=== PATIENT | female | born 1970 | race American Indian/Alaskan Native ===

== ENCOUNTER 2020-06-03 08:24 | Outpatient (CLI) | payer OTHER ==
--- NOTE | 2020-06-03 11:05 | Ultrasound Report ---
RIGHT DIGITAL DIAGNOSTIC MAMMOGRAM WITH CAD WITH TOMOSYNTHESIS, 06/03/2020 LEFT LIMITED BREAST ULTRASOUND CLINICAL INFORMATION / INDICATION: History of mild architectural distortion with benign layering micr ocalcifications in the upper outer right breast since it least 2016 with biopsy this area yielding be nign findings in 2017. Subsequent evaluation at [facility] resulted in conclusion of no additio nal biopsy needed. Recent follow-up examination at a different outside institution suggested slight i ncrease in microcalcifications with recommendation of excision. 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 Patient has a family history of b reast cancer. Patient presents today for follow-up evaluation and assessment of need for biopsy of the ductal ectas ia on the left and for repeat stereotactic guided biopsy on the right. TECHNIQUE: Digital right mammographic imaging was performed including tomosynthesis. Spot compression views were obtained. Limited ultrasound was performed. This examination was interpreted with the perla efit of Computer-Aided Detection (CAD) analysis. COMPARISON: Multiple prior outside examinations from 2016 through 12/09/2019 FINDINGS: Breast Density: The breasts are heterogeneously dense, which may obscure small masses. MAMMOGRAPHIC FINDINGS: Examination today includes 3-plane full field conventional and tomosynthesis i maging of the right breast and additional conventional spot views. Most recent outside study in December consisted only of full field conventional imaging and ultrasound of the right breast. The area of mild architectural distortion with associated microcalcifications is again seen in the up per outer right breast. Biopsy clip is located within this area. Comparison with prebiopsy images isabelle the biopsy removed many of the central calcifications which had previously shown to be benign and layering on 90 degree magnification views. Close evaluation of the remaining microcalcifications to b ot the most recent images and older images does not reveal an obvious increase in calcifications. I do not see a change in the appearance of the mild architectural distortion from 2016. This area appea rs stable from that time with the exception of the interval biopsy changes. On study in December when the re was a question of a density more medially which is not seen today. No other changes are noted. ULTRASOUND FINDINGS: Targeted ultrasound evaluation was performed of the area of interest. Evaluatio n of the retroareolar area of the left breast shows again diffuse ductal ectasia in this area with mu ltiple mild moderately dilated ducts. Most of these ducts show very mild diffuse increase in echogeni city internally which is much less prominent than on the study in December. No moving debris was reported by the technologist. No vascularity, shadowing, wall thickening, or nodularity is seen. No single du ct is particularly prominent. No other abnormalities are seen. IMPRESSION: 1. On the right the situation is rather complicated, in part by multiplicity of evaluations at differ ent centers over the last 3 years with varying recommendations ranging from no interventional action to recommendation of excision of the continuing area of calcifications and mild architectural distort ion. The calcifications are clearly benign on prior magnification analysis. The 2017 stereotactic bio psy appears to have involved the area in question with good positioning of the clip in this area and removal of the central microcalcifications. This area, other than the biopsy changes, to my analysis is stable since 2016. 2. Improved appearance of the ductal ectasia in the left retroareolar area. Though the ectasia persis ts involving multiple ducts, the degree of internal echogenicity is decreased without other suspiciou s characters. Patient denies history of nipple discharge. 3. Given the stable appearance on the right and prior benign biopsy of this area, I concur with the p revious [facility] assessment that repeating the stereotactic biopsy is clearly indicated. Rick tionally, there is improvement in appearance of the only mildly abnormal multiple dilated ducts in th e left retroareolar area. My strong recommendation is for breast MR which according to the patient ramirez s not been performed in the past. This would allow noninterventional significant evaluation of the ar eas in question in both breasts. If abnormal enhancement is seen in the areas in question then certai nly biopsy by percutaneous or excisional methods might be reconsidered. This was discussed at length with the patient and she understands and agrees with the course of actio n. Follow up recommendation: See above BI-RADS Category 0: Incomplete. Needs additional imaging evaluation and/or prior mammograms for gume vora. A "normal" or negative report should not discourage follow up or biopsy of a clinically significant f inding. A written summary of these findings will be mailed to the patient. The patient will be entered into a mammography reporting system which will generate a reminder letter for the patient's next appointmen t at the appropriate interval. According to the [employer], yearly mammograms are recommended starting at age 40 and continuing as long as a woman is in good health. Breast MRI is recommended for women with an deandre roximately 20-25% or greater lifetime risk of breast cancer, including women with a strong family his tory of breast or ovarian cancer and women who have been treated for Hodgkin's disease. Signer Name: Nicolas Em MD Signed: 06/03/2020 11:00 AM Workstation Name: [id number]
== END 2020-06-03 08:25 | disposition home or self-care (01) ==
LOC: SPVWC 08:24
PROVIDERS: ATTEND Surgery
DX: R92.1 Mammographic calcification found on diagnostic imaging of breast (principal); R92.8 Other abnormal and inconclusive findings on diagnostic imaging of breast; N64.89 Other specified disorders of breast
CPT/HCPCS: 76642; 77065; G0279

== ENCOUNTER 2020-06-24 08:31 | Outpatient (CLI) | payer OTHER ==
--- NOTE | 2020-06-24 10:02 | Magnetic Resonance Report ---
Bilateral breast MR without and with contrast. History: Abnormal right breast mammogram and left breast ultrasound. Comparison: 06/03/2020, 12/09/2019, 11/14/2018, 10/22/2018, 05/17/2016, 04/28/2016 Technique: Multiplanar multisequence MR images of the breast were obtained before and after the intra venous administration of intravenous contrast. Post processing analysis and review was performed on a separate computer workstation. Findings: There is heterogenously dense fibroglandular tissue bilaterally. Minimal background parenchymal enhan cement is present. RIGHT BREAST: Located within the right upper outer breast at middle depth is a 2.2 x 1.4 x 1.8 cm are a of focal low level nonmasslike enhancement. This appears to correspond with the site of previously noted architectural distortion and adjacent biopsy marker which was noted on prior exams. Areas of T1 hyperintense signal is noted on the precontrast images within a ductal distribution. The pattern is most consistent with proteinaceous debris and ductal ectasia. LEFT BREAST: No discrete enhancing mass, dominant focus, or other abnormal enhancement is identified within the left breast. Areas of T1 hyperintense signal is noted on the precontrast images within a ductal distribution. The pattern is most consistent with proteinaceous debris and mild ductal ectasia , most pronounced on the left. No abnormal axillary or internal mammary lymph nodes. Impression: There is a focal area of nonmasslike enhancement within the right upper outer breast at middle depth. This would appear to correspond with the mammographic area of architectural distortion and associate d biopsy marker. Given the focal area of enhancement in this region as well as clinical concern on pr ior imaging/reports, stereotactic biopsy versus surgical excision is recommended. BIRADS 4: Suspicious abnormality. A normal MRI does not exclude the presence of some forms of breast malignancy as literature reports s uggest that some forms of ductal carcinoma in situ or lobular carcinoma, particularly, may not be det ected on MRI. The sensitivity and specificity of MRI for cancers under 5 mm may be reduced. MRI does not replace the recommendation for annual conventional mammographic evaluation and should be used as an adjunct to mammography and physical examination as necessary. Signer Name: Julian Gaona MD Signed: 06/24/2020 9:58 AM Workstation Name: [id number]
== END 2020-06-24 08:32 | disposition home or self-care (01) ==
LOC: SPVIMAG 08:31
PROVIDERS: ATTEND Surgery
DX: N60.42 Mammary duct ectasia of left breast (principal); R92.2 Inconclusive mammogram
CPT/HCPCS: A9575; C8908; 77049

== ENCOUNTER 2020-08-05 08:06 | Outpatient (CLI) | payer OTHER ==
--- NOTE | 2020-08-05 12:17 | Mammography Report ---
DIGITAL DIAGNOSTIC MAMMOGRAM WITH CAD CONVENTIONAL, 08/05/2020 CLINICAL INFORMATION / INDICATION: Post stereotactic biopsy TECHNIQUE: Digital right mammographic imaging was performed. This examination was interpreted with the benefit of Computer-aided Detection analysis. COMPARISON: Diagnostic mammogram 06/03/2020, MR breast 06/24/2020 FINDINGS: Breast Density: The breasts are heterogeneously dense, which may obscure small masses. The calcifications in question near the old biopsy clip in the upper outer right breast are significa ntly decreased in number though there are a few remaining calcifications. Cavity and clip are at the site. Calcifications were seen in the specimen set. IMPRESSION: Appropriate sampling and clip placement Follow up recommendation: Per biopsy results Post biopsy imaging. A "normal" or negative report should not discourage follow up or biopsy of a clinically significant f inding. A written summary of these findings will be mailed to the patient. The patient will be entered into a mammography reporting system which will generate a reminder letter for the patient's next appointmen t at the appropriate interval. According to the [employer], yearly mammograms are recommended starting at age 40 and continuing as long as a woman is in good health. Breast MRI is recommended for women with an deandre roximately 20-25% or greater lifetime risk of breast cancer, including women with a strong family his tory of breast or ovarian cancer and women who have been treated for Hodgkin's disease. Signer Name: Nicolas Em MD Signed: 08/05/2020 12:13 PM Workstation Name: [id number]
--- NOTE | 2020-08-05 14:10 | Mammography Report ---
STEREOTACTIC GUIDED VACUUM ASSISTED MAMMOTOME BIOPSY OF THE RIGHT BREAST INDICATION: History of long-standing right breast calcifications and mild architectural distortion, p reviously biopsied as benign; recent MR showing mild patchy enhancement in this area COMPARISON: MR breast 06/24/2020, right mammogram 06/03/2020, multiple prior outside examinations ANESTHESIA: Local DEVICE: Vacuum-assisted mammotome biopsy device, 8 gauge APPROACH: Superior CONSENT: Procedure was discussed in advance at length with the patient including possible risks and b enefits. The possibility of bleeding was discussed. Opportunity for questions was given. Patient is n ot on anticoagulant therapy and does not report pertinent allergies. Post procedural care was discuss ed. PROCEDURE: Timeout was performed. The grouped microcalcifications near the old biopsy clip were targe javan stereotactically. Using aseptic technique, needle was advanced to the appropriate depth and multi ple [id number] biopsies were performed. Specimens were then radiographed revealing multiple danelle cifications across 2 sets of samples. A metallic clip was then left in place and an image was obtaine d for confirmation. The device was removed and pressure was held at the puncture site. Site was secur ed. Specimens were sent to pathology for analysis. Patient was then sent for post biopsy mammogram wh ich showed significant reduction in the targeted calcifications and appropriate clip placement. Patie nt tolerated the procedure well and left the department in good condition. IMMEDIATE COMPLICATIONS: None IMPRESSION: Successful stereotactic guided vacuum assisted mammotome biopsy of the right breast Signer Name: Nicolas Em MD Signed: 08/05/2020 2:06 PM Workstation Name: [id number]
== END 2020-08-05 08:07 | disposition home or self-care (01) ==
LOC: SPVWC 08:06
PROVIDERS: ATTEND Surgery
DX: R92.1 Mammographic calcification found on diagnostic imaging of breast (principal); R92.8 Other abnormal and inconclusive findings on diagnostic imaging of breast; R92.0 Mammographic microcalcification found on diagnostic imaging of breast; N62 Hypertrophy of breast; N64.89 Other specified disorders of breast
CPT/HCPCS: 19081; 77065; 88305; A4648